=== PATIENT | male | born 1945 | race Caucasian/White ===

== ENCOUNTER → 2019-01-31 | Outpatient (CLI) | payer MEDICARE ==
--- NOTE | 2019-01-31 12:10 | XR ---
EXAMINATION TYPE: XR chest 2V DATE OF EXAM: 01/31/2019 COMPARISON: None HISTORY: Shortness of breath TECHNIQUE: Frontal and lateral views of the chest are obtained. FINDINGS: Scattered senescent parenchymal changes noted. Hyperinflation compatible with COPD. No evidence for infiltrate. No evidence for atelectasis.Left basilar pleural thickening. No definite infiltrate appreciated at this time. Heart size is stable. Mediastinal structures are stable and grossly unremarkable. No evidence for hilar prominence. Degenerative changes dorsal spine. IMPRESSION: 1. No evidence for acute pulmonary disease.
== END | disposition home or self-care (01) ==
LOC: RADXRMAIN 11:47
PROVIDERS: ATTEND Family Medicine
DX: R09.89 Other specified symptoms and signs involving the circulatory and respiratory systems (principal)
CPT/HCPCS: 71046

== ENCOUNTER → 2025-02-07 | Outpatient (CLI) | payer MEDICARE ==
--- NOTE | 2025-02-07 14:58 | CT ---
EXAMINATION TYPE: CT chest wo con DATE OF EXAM: 02/07/2025 COMPARISON: None CLINICAL INDICATION: Male, 79 years old with history of R94.2 ABNORMAL RESULTS OF PULMONARY FUNCTION STUDI; [facility], Abnormal results of pulmonary study TECHNIQUE: CT scan of the thorax is performed without IV contrast. CT DLP: 395.[address] CTDI: mGy Automated exposure control for dose reduction was used. FINDINGS: There is mild peribronchial cuffing and mild to moderate bronchiectasis in the lower lobes. No groundglass opacity or honeycombing. There is a 12.2 mm nodule in the subpleural parenchymal right middle lobe. Neoplasm is not excluded a nd PET scan is recommended for further evaluation. 3 additional left lung nodules largest of which is approximately 5.8 mm. There is a 5 mm groundglass nodule in the right lower lobe. There is 3.9 cm borderline aneurysmal dilatation of the ascending thoracic aorta. The main pulmonary artery is not dilated. There is mild cardiomegaly. No mediastinal, hilar or axillary adenopathy. Limited scanning through the upper abdomen reveals a large gallstone. There are no focal osseous lesions. IMPRESSION: 1.Multiple lung nodules. The index nodule is a 12.2 mm subpleural parenchymal nodule in the right mid dle lobe. Neoplasm is not excluded and PET scan is recommended for further evaluation. 2. Mild peribronchial cuffing and bronchiectasis in the lower lobes. 3. borderline enlargement of the ascending thoracic aorta. 4. Mild cardiomegaly. 5. Cholelithiasis. [facility], , 02/07/2025 2:55 PM
== END | disposition home or self-care (01) ==
LOC: RADCTMAIN 13:50
PROVIDERS: ATTEND Family Medicine
DX: J47.9 Bronchiectasis, uncomplicated (principal); K80.20 Calculus of gallbladder without cholecystitis without obstruction; I51.7 Cardiomegaly; R94.2 Abnormal results of pulmonary function studies; R91.8 Other nonspecific abnormal finding of lung field
CPT/HCPCS: 71250

== ENCOUNTER → 2025-03-01 | Outpatient (CLI) | payer MEDICARE ==
--- NOTE | 2025-03-03 23:58 | PE ---
EXAMINATION TYPE: PET CT fusion skull to thigh DATE OF EXAM: 03/01/2025 COMPARISON: CT chest 02/07/2025 Prior PET/CT: No prior PET/CT at this location. CLINICAL INDICATION: Male, 79 years old with history of R91.8 ABNORMAL FINDINGS LUNG FIELD, TECHNIQUE: Following the intravenous administration of 10.64 mCi of F-18 FDG, whole body images are performed PET CT fusion skull to thigh. Images are reviewed on the computer in the coronal, axial, a nd sagittal planes. Reconstructed rotating images are created on independent workstation and reviewe d on the computer. A localization and attenuation correction CT is performed in conjunction with th e PET scan. DLP: 698 mGycm SCAN: Initial Blood glucose: 98 mg/dL Average Mediastinum SUV: 2.3 Average Liver SUV: 2.34 FINDINGS: NECK: No abnormal uptake THORAX: No abnormal uptake. Within the 1.2 cm nodule anterior lateral right lung base focus in CBD is 1.88 which is in the intermediate range likely inflammatory in nature. Additional nodules do not hav e elevated radiotracer. ABDOMEN: No abnormal uptake PELVIS: No abnormal uptake OSSEOUS STRUCTURES: No abnormal uptake LOCALIZATION CT: No suspicious findings COMPARISON: No uptake within the punctate nodule adjacent to the proximal left aortic arch. No suspic ious uptake within the left peripheral midlung. No suspicious uptake posterior medial right lung. IMPRESSION: 1. No suspicious uptake to suggest primary or metastatic neoplasm. 2. No uptake within the very small nodules. Low to intermediate uptake within reference nodule rosetta lateral right lung sulcus. [facility], , 03/03/2025 11:55 PM
== END | disposition home or self-care (01) ==
LOC: RADPETMAIN 06:59
PROVIDERS: ATTEND Family Medicine
DX: R91.8 Other nonspecific abnormal finding of lung field (principal)
CPT/HCPCS: 78815; A9552